=== PATIENT | female | born 1950 | race African-American/Black ===

== ENCOUNTER 2018-09-01 13:13 | Outpatient (CLI) | payer BC ==
--- NOTE | 2018-09-01 14:05 | ULT ---
THYROID ULTRASOUND: Date: 09-01-18 History: Thyroid nodule. Comparison: 08-26-17 FINDINGS: Right lobe of the thyroid gland measures 6 cm x 2.9 cm x 2.5 cm and the left lobe measures 7 cm x 4 c m x 4 cm. Multiple thyroid nodules are again seen currently involving the left lobe of the thyroid gland and th yroid isthmus. Exact measurement of multiple nodules in the left lobe of the thyroid gland are diffic ult to adequately measure due to multiple closely adjacent nodules which involve almost the entire le ft lobe of the thyroid gland. These were also seen on prior ultrasound exam. There are more discrete nodules seen in the midportion of the right lobe of the thyroid gland measuring 1.4 cm and 1.2 cm res pectively which demonstrate heterogenous appearance and were also seen on prior exam as well as on st [facility] of 08-27-16. No definitive new thyroid nodules can be delineated. IMPRESSION: Enlarged multinodular thyroid gland with multiple thyroid nodules occupying the entire left lobe of t he thyroid gland and thyroid isthmus similar to prior exam. POS: [facility]
== END 2018-09-01 13:14 | disposition home or self-care (01) ==
LOC: BICULT 13:13
PROVIDERS: ATTEND Internal Medicine Endocrinology, Diabetes & Metabolism
DX: E04.2 Nontoxic multinodular goiter (principal); E03.9 Hypothyroidism, unspecified
CPT/HCPCS: 76536

== ENCOUNTER 2021-06-26 14:45 | Outpatient (CLI) | payer BC | END 2021-06-26 14:46 | disposition home or self-care (01) | LOC: BICULT 14:45 | PROVIDERS: ATTEND Urology | DX: R39.89 Other symptoms and signs involving the genitourinary system (principal) | CPT/HCPCS: 76770 ==